=== PATIENT | male | born 1975 | race Caucasian/White ===

== ENCOUNTER 2024-03-04 02:45 | Emergency (ER) | payer OTHER, SELFPAY ==
[2024-03-04 02:46] VITALS: BP 134/92
--- NOTE | 2024-03-04 03:07 | ED.GENMED ---
History of Present Illness
General
Chief Complaint: Medication Reaction
Source: patient
Exam Limitations: none
Time Seen by Provider: 03/04/24 03:05
Nursing documentation reviewed up to this point in time: agreed with
History of Present Illness
History of Present Illness:
Pt is a 48yo male with PMHx of dental infections s/p root canals, recent COVID infection, anxiety, and HLD who presents to the ED with concerns over dental pain and myalgias x 1d. Pt reports that 2.5 weeks ago he had a root canal to his L lateral
incisor, was prescribed a 7d course of penicillin. He completed this course but developed COVID about 2 weeks ago. He had no dental pain after the course of PCN. He now reports dental pain over the same upper R lateral incisor that began the morning
of 03/03 (1d ago), so he called the oral surgeon and was prescribed methylprednisolone 'despite telling them multiple times there was no inflammation'. He woke up this morning uncomfortable with body chills (temp of 96.3F) and body aches. Denies
recent fevers in the past week, diaphoresis, sinus pain or pressure, rhinorrhea or congestion, lip or gum swelling, gum redness or fluctuance.
Pt is upset that he was prescribed prednisone and not an antibiotic for this new onset pain, states 'it feels like an infection is forming'.
Past History
Past History
ED Past Medical History: Hypercholesterolemia and Psychiatric (Anxiety)
ED Past Surgical History: Cholecystectomy and Other (Bilateral hernia repair)
Social History
Tobacco: Non-smoker
Alcohol: None
Drug: None
Living: with family
Family History
Family History: Other (noncontributory)
Phy Exam
General Physical Exam
General Presentation: mild distress (pt pacing in room, in relative discomfort, eyes winced shut)
General age: appears stated age
General Skin: warm and dry
General Habitus: normal
General Mental: angry and anxious
General Hydration: appears well hydrated
ENT Exam
ENT Exam: pharynx normal and other (pain with palpation just inferior-lateral to the R nostril)
Additional ENT: gums non-erythematous, non-fluctuant, no halitosis, no upper lip edema
Neurological Exam
Neurological Exam: alert and oriented x3
Psychiatric Exam
Psychiatric Exam: anxious
Course
Vital Signs
Initial and Last Documented VS:
Initial Vital Signs
Temp Pulse Resp BP Pulse Ox
97.6 F 72 22 134/92 97
03/04/24 02:46 03/04/24 02:46 03/04/24 02:46 03/04/24 02:46 03/04/24 02:46
Last Documented Vital Signs
Temp Pulse Resp BP Pulse Ox
97.6 F 72 22 134/92 99
03/04/24 02:46 03/04/24 02:46 03/04/24 02:46 03/04/24 02:46 03/04/24 03:21
MDM/Problems Addressed
Differential Diagnosis Includes:
48yo male with hx of dental infection s/p root canal 2 weeks ago. Hx of multiple root canals prior.
DDx: dental abscess, dental infection, viral illness
Plan to give dose of azithromycin and discharge with Z-vi given hx of dental infections.
Will instruct to f/u with dentist.
*Critical Care Note
Total Time (30-74mins, 75-104mins- exclusive of procedures): Not Applicable
ED Attending Note
-
Portions of this chart may have been created with voice recognition software.� Occasional wrong word or��sound alike� substitutions may have occurred due to the inherent limitations of voice recognition software.
Discharge Plan
Departure
Prescriptions:
No Action
citalopram 20 MG tablet
20 mg PO DAILY
cefadroxil [Duricef] 500 MG capsule
500 mg PO BID Qty: 20 0RF
rosuvastatin
Interventions
Interventions:
*Risk Screen - Suicide Last Done: 03/04/24 03:27
*General Assessment Last Done: 03/04/24 03:27
*Neglect/Abuse Screening Last Done: 03/04/24 03:27
ED-Skin Assessment Last Done: 03/04/24 03:21
ED-Peripheral Vascular Assessment Last Done: 03/04/24 03:26
ED- Pulmonary Assessment Last Done: 03/04/24 03:21
ED-Musculoskeletal Assessment Last Done: 03/04/24 03:21
ED-EENT Assessment Last Done: 03/04/24 03:21
Discharge Date and Time
Print Language: SYRIAC
[2024-03-04 03:30] VITALS: BMI 27.7
[2024-03-04] MEDS: MOTRIN 600 MG PO (04:43)
[2024-03-04] MEDS: ZITHROMAX 500 MG PO (04:44)
== END 2024-03-04 05:10 | disposition home or self-care (01) ==
LOC: EMR 02:45
PROVIDERS: EMERGENCY PHYSICIAN Student in an Organized Health Care Education/Training Program; FAMILY PHYSICIAN Family Medicine
DX: K04.7 Periapical abscess without sinus (principal); F41.9 Anxiety disorder, unspecified; E78.00 Pure hypercholesterolemia, unspecified
CPT/HCPCS: 99283

== ENCOUNTER → 2025-04-03 10:58 | Outpatient (REF) | payer OTHER, SELFPAY | LOC: RAD 10:58 | PROVIDERS: ATTENDING PHYSICIAN Family Medicine | DX: M54.9 Dorsalgia, unspecified (principal) | CPT/HCPCS: 72072 ==

== ENCOUNTER → 2025-04-26 17:12 | Outpatient (REF) | payer OTHER, SELFPAY | LOC: RAD 17:12 | PROVIDERS: ATTENDING PHYSICIAN Physician Assistant Medical | DX: R07.89 Other chest pain (principal) | CPT/HCPCS: 71046 ==

== ENCOUNTER → 2025-07-02 20:15 | Outpatient (REF) | payer OTHER, SELFPAY | LOC: MRI 3T 20:15 | PROVIDERS: ATTENDING PHYSICIAN Physician Assistant; FAMILY PHYSICIAN Physician Assistant Medical | DX: M54.14 Radiculopathy, thoracic region (principal) | CPT/HCPCS: 72146 ==